=== PATIENT | male | born 1955 | race Caucasian/White ===

== ENCOUNTER 2016-09-19 12:22 | Outpatient (RCR) | payer BC ==
[~2016-09-19] VITALS: Ht 177.8 cm; Wt 74.8 kg
[~2016-09-19 12:22] MED LIST: NAPH10DR OP
[2016-09-19 12:44] VITALS: BP 161/84
[2016-09-19] MEDS ORDERED: cefTRIAXone SODIUM 1,000 MG in SODIUM CHLORIDE 50 ML IV ONE (12:45)
== END 2016-12-07 18:19 | disposition home or self-care (01) ==
LOC: EUOP 12-07 18:19
PROVIDERS: ATTEND Family Medicine
DX: L03.116 Cellulitis of left lower limb (principal)
CPT/HCPCS: 96365; J0696; 36000